=== PATIENT | female | born 1970 | race Caucasian/White ===

== ENCOUNTER 2017-05-11 14:28 | Emergency (ER) | payer OTHER ==
[2017-05-11 14:45] VITALS: BP 154/80
--- NOTE | 2017-05-11 15:20 | Diagnostic Imaging Report ---
[facility] [address] [facility].[address] [address] Report Submission Date: May 11, 2017 3:14:00 PM CDT Patient Study Name: AMY MOELLER Date: May 11, 2017 2:49:07 PM CDT Modality Type: CR Gender: F Description: SHOULDER : 72 Institution: [facility] Physician: KRIS KIMBROUGH - ER Examination: Plain film shoulder History: Fall Comparison exams: None provided Findings: 2 views of the shoulder demonstrate normal cortical margins. No evidence for fracture or dislocation. No soft tissue abnormality Impression: No fracture Electronically signed on May 11, 2017 3:14:00 PM CDT by: Bert FALLON
[2017-05-11] MEDS ORDERED: KETOROLAC TROMETHAMINE 60 MG/2 ML VIAL IM ONE (15:31)
--- NOTE | 2017-05-11 16:13 | ED Physician Documentation ---
General Adult - HISTORIAN Historian: patient - HPI Stated Complaint: right clavicle pain Chief Complaint: General Adult Onset: hours Timing: still present Severity: moderate Further Comments: yes (Pt is a 46 yo female who tripped and fell in her bedroom and landed on her R shoulder. Pt had large machine, something like a sewing mechine, used for quilting, and she got her foot entangled in the power cords and fell. Pt has pain in the R clavicle and says it hurts to try to raise her arm.) - ROS CONST: no problems EYES/ENT: none CVS/RESP: none GI/: none MS/SKIN/LYMPH: other (R shoulder/clavicle pain) - PAST HX Past History: other (Depression, DVT, insomnia) Surgeries/Procedures: BTL Allergies/Adverse Reactions: Allergies Allergy/AdvReac Type Severity Reaction Status Date / Time metoclopramide HCl AdvReac Unknown Muscle Pain Verified 05/11/17 14:34 [[facility] [place] Home Medications: Ambulatory Orders Medication Instructions Recorded Citalopram Hydrobromide 20 mg PO DAILY 05/11/17 [Citalopram HBr] Clopidogrel Bisulfate [Plavix] 75 mg PO DAILY 05/11/17 Zolpidem Tartrate [Zolpidem 5 mg PO HS PRN 05/11/17 Tartrate] - SOCIAL HX Smoking History: non-smoker - FAMILY HX Family History: No - VITAL SIGNS Vital Signs: Vital Signs Temp Pulse Resp BP Pulse Ox 98.4 F 107 H 19 154/80 98 05/11/17 14:36 05/11/17 14:36 05/11/17 14:36 05/11/17 14:36 05/11/17 14:36 - REVIEWED ASSESSMENTS Nursing Assessment Reviewed: Yes Vitals Reviewed: Yes Progress - Progress Progress: X-ray R shoulder/clavicle: 2 views of the shoulder demonstrate normal cortical margins. No evidence for fracture or dislocation. No soft tissue abnormality. Impression: No fracture. Possible A-C joint injury, ? Type I or II. Rx [place] (5/325). Take one or two as needed for moderate to severe pain. Ibuprofen 200 mg. Take 3 tablets every 8 hrs with food. Wear sling. Follow up with primary provider or orthopedic doctor if symptoms persist after a few days or a week. ED Results Lab/Radiology - Orders Orders: ED Orders Category Date Time Status RIGHT CLAVICLE [CLAVICLE COMPLETE] [RAD] Stat Exams 05/11/17 Ordered General Adult Physical Exam - PHYSICAL EXAM GENERAL APPEARANCE: moderate distress EENT: eye inspection normal NECK: normal inspection, supple RESPIRATORY: no resp distress, chest non-tender, breath sounds normal CVS: reg rate & rhythm, heart sounds normal BACK: normal inspection SKIN: warm/dry, normal color EXTREMITIES: other (tenderness over R A-C joint, no step-off; inhibited R arm movement.) NEURO: oriented X3, motor nml, sensation nml Discharge Clincal Impression: Possible Right, A-C joint injury Referrals: Hay Sylvester MD [Primary Care Provider] - Home Medications: Ambulatory Orders Citalopram Hydrobromide [Citalopram HBr] 20 mg PO DAILY 05/11/17 Clopidogrel Bisulfate [Plavix] 75 mg PO DAILY 05/11/17 Zolpidem Tartrate [Zolpidem Tartrate] 5 mg PO HS PRN 05/11/17 Condition: Good Disposition: 01 HOME, SELF-CARE Decision to Admit: NO Decision Time: 15:33
== END 2017-05-11 15:48 | disposition home or self-care (01) ==
LOC: ED 14:28
DX: S49.81XA Other specified injuries of right shoulder and upper arm, initial encounter (principal); X58.XXXA Exposure to other specified factors, initial encounter; Y93.9 Activity, unspecified; Y99.9 Unspecified external cause status
CPT/HCPCS: 73000; J1885; 96372; 99283